=== PATIENT | female | born 1970 | race Caucasian/White ===

== ENCOUNTER 2023-10-30 06:58 | Inpatient (IN) | payer MEDICAID ==
[2023-10-24 14:19] LABS: BASOPHILS % (AUTO) 0.5 % (0-1); EOSINOPHILS # (AUTO) 0.2 X10'3 (0-0.9); EOSINOPHILS % (AUTO) 3.2 % (0-6); LYMPHOCYTES # (AUTO) 1.9 X10'3 (1.1-4.8); LYMPHOCYTES % (AUTO) 29.6 % (21-51); MEAN CORPUSCULAR HEMOGLOBIN 31.3 PG (27.0-31.0); MEAN CORPUSCULAR HGB CONC 33.5 g/dL (33.0-36.5); MEAN CORPUSCULAR VOLUME 93.7 FL (78-98); MEAN PLATELET VOLUME 8.1 FL (7.4-10.4); MONOCYTES # (AUTO) 0.4 X10'3 (0-0.9); NEUTROPHILS # (AUTO) 3.8 X10'3 (1.8-7.7); NEUTROPHILS % (AUTO) 59.7 % (42-75); PRE OP HEMATOCRIT 41.1 % (35.0-45.0); PRE OP HEMOGLOBIN 13.7 g/dL (12.0-16.0); PRE OP PLATELET COUNT 226 X10'3 (140-440); PRE OP WHITE BLOOD COUNT 6.3 10'3 (4.8-10.8); RED BLOOD COUNT 4.38 X10'6 (4.20-5.60); RED CELL DISTRIBUTION WIDTH 13.2 % (11.5-14.5)
[2023-10-24 14:32] LABS: ALBUMIN 3.7 G/DL (3.4-5.0); ALBUMIN/GLOBULIN RATIO 1.1 (1.1-1.5); ALKALINE PHOSPHATASE 138 IU/L (46-116); BLOOD UREA NITROGEN 11 MG/DL (7-18); BUN/CREATININE RATIO 11.8 (10.0-20.0); CHLORIDE 105 MMOL/L (99-107); CREATININE 0.93 MG/DL (0.40-0.90); PRE OP ALT 27 U/L (30-65); PRE OP ANION GAP 9 (8-16); PRE OP AST 12 U/L (10-37); PRE OP BILIRUB, TOTAL 0.3 MG/DL (0.0-1.0); PRE OP GLUCOSE 83 MG/DL (70-104); PRE OP POTASSIUM 3.9 MMOL/L (3.4-5.1); PRE OP SODIUM 142 MMOL/L (135-145); TOTAL PROTEIN 7.1 G/DL (6.4-8.2); eGFR 63 ML/MIN
[2023-10-30] VITALS (25 sets, daily range): BP systolic 115–166; BP diastolic 59–98; PULSE 58–86; RESP 13–17; TEMP 97.6–97.7; O2SAT 92–98
[~2023-10-30] VITALS: Ht 162.6 cm; Wt 81.2 kg
[2023-10-30] MEDS: cefazolin 2gm/D5W 100mL 100 ML IV ONE (05:30)
[~2023-10-30 06:58] MED LIST: ACET-1 PO; PARO10TA4 PO
[2023-10-30] MEDS: ringers solution, lacted 1,000 ML IV SCH ×2 (07:47→10:00)
[2023-10-30] MEDS: famotidine 20mg tablet PO ONE (07:48)
[2023-10-30] MEDS: LIDOcaine 1% 30ml preserv. free vial ONE (09:21)
[2023-10-30] MEDS: BUPIVAcaine/PF 2.5mg/ml (0.25%) 10ml vial ONE ×2 (09:21→11:56)
[2023-10-30] MEDS ORDERED: sevoflurane 250ml liquid IH ONE (09:26)
[2023-10-30] MEDS ORDERED: midazolam 1 mg/ML 2ml injection ONE (09:28)
[2023-10-30] MEDS ORDERED: fentaNYL/PF 50MCG/1 ML 2ML syringe ONE ×2 (09:28→11:03)
[2023-10-30] MEDS ORDERED: LIDOcaine 2% (20mg/ml) 5ml vial ONE (09:28)
[2023-10-30] MEDS ORDERED: propofol inj 20 ML IV ONE (09:28)
[2023-10-30] MEDS ORDERED: ondansetron/PF 4mg/2ml inj ONE (09:29)
[2023-10-30] MEDS ORDERED: glycopyrrolate 0.2mg/ml inj ONE (09:29)
[2023-10-30] MEDS ORDERED: rocuronium 10mg/ml inj IV ONE ×3 (09:29→12:19)
[2023-10-30] MEDS ORDERED: acetaminophen 1,000mg/100ml IV 100 ML IV ONE (09:30)
[2023-10-30] MEDS ORDERED: ondansetron/PF 4mg/2ml inj IV PRN ×2 (10:00→13:20)
[2023-10-30] MEDS ORDERED: labetalol 20mg/4ml (5mg/ml) syringe IV PRN (10:00)
[2023-10-30] MEDS ORDERED: fentaNYL/PF 50MCG/1 ML 2ML syringe IV PRN ×2 (10:00)
[2023-10-30] MEDS ORDERED: hydrALAZINE 20mg/ml inj. IV PRN (10:00)
[2023-10-30] MEDS: BUPIVAcaine 0.5% inj/PF 30 ml vial IJ ONE (10:07)
[2023-10-30] MEDS ORDERED: ePHEDrine 50MG/ML INJ. ONE (10:19)
[2023-10-30] MEDS ORDERED: sugammadex 200mg/2ml injection IV ONE (10:45)
[2023-10-30] MEDS: BUPIVACAINE liposomal/PF 13.3 MG/ML vial IM ONE (11:56)
[2023-10-30] MEDS: morphine 4 MG/ML inj SYRINge IV PRN (13:09)
[2023-10-30] MEDS: normal saline 1000ml 1,000 ML IV SCH (13:20)
[2023-10-30] MEDS ORDERED: naloxone 0.4 mg/ml inj IV PRN (13:20)
[2023-10-30] MEDS: morphine 2 MG/ML inj. syringe IV PRN (13:27)
[2023-10-30] MEDS: HYDROmorph/NS 0.2 mg/ml PCA 100 ML IV SCH (14:09)
[2023-10-30] MEDS: heparin, porcine 5000 units/ml vial SQ SCH (20:09)
[2023-10-30] MEDS: docusate sod 100mg capsule PO SCH (20:09)
[2023-10-30] MEDS: sennosides/docusate sodium tablet PO SCH (20:10)
[2023-10-31] VITALS (7 sets, daily range): BP systolic 122–143; BP diastolic 68–82; PULSE 63–86; RESP 14–16; TEMP 97.7–98.4; O2SAT 19–95
[2023-10-31] MEDS: PARoxetine 10mg tablet PO SCH (10:22)
[2023-10-31] MEDS ORDERED: oxyCODONE/APAP 5-325mg tablet PO PRN (11:55)
[2023-10-31] MEDS: magnesium hydroxide 30ml (MOM) UD suspension PO ONE (12:41)
[2023-10-31] MEDS: PCA WASTE DOCUMENTATION 1 MG ML MC SCH (13:07)
[2023-10-31] MEDS: oxyCODONE/APAP 5-325mg tablet PO PRN ×2 (16:16→19:37)
[2023-11-01 06:00] VITALS: BP 154/93; PULSE 71; RESP 16; TEMP 97.9; O2SAT 94
[2023-11-01 07:06] LABS: ALBUMIN 3.4 G/DL (3.4-5.0); ANION GAP 7 (8-16); BLOOD UREA NITROGEN 9 MG/DL (7-18); BUN/CREATININE RATIO 12.9 (10.0-20.0); CALCIUM 9.1 MG/DL (8.5-10.1); CHLORIDE 102 MMOL/L (99-107); GLUCOSE 92 MG/DL (70-104); POTASSIUM 3.6 MMOL/L (3.5-5.1); SODIUM 140 MMOL/L (135-145); TOTAL CARBON DIOXIDE 31.4 MMOL/L (24-32); eCRCL 79 ML/MIN; eGFR 87 ML/MIN
[2023-11-01 07:13] LABS: BASOPHILS % (AUTO) 0.4 % (0-1); EOSINOPHILS # (AUTO) 0.1 X10'3 (0-0.9); EOSINOPHILS % (AUTO) 2.3 % (0-6); HEMATOCRIT 39.9 % (35.0-45.0); HEMOGLOBIN 13.2 g/dl (12.0-16.0); LYMPHOCYTES # (AUTO) 1.3 X10'3 (1.1-4.8); LYMPHOCYTES % (AUTO) 20.7 % (21-51); MEAN CORPUSCULAR HEMOGLOBIN 31.6 PG (27.0-31.0); MEAN CORPUSCULAR HGB CONC 33.1 g/dL (33.0-36.5); MEAN CORPUSCULAR VOLUME 95.5 FL (78-98); MEAN PLATELET VOLUME 8.6 FL (7.4-10.4); MONOCYTES # (AUTO) 0.5 X10'3 (0-0.9); MONOCYTES % (AUTO) 8.1 % (2-12); NEUTROPHILS # (AUTO) 4.3 X10'3 (1.8-7.7); NEUTROPHILS % (AUTO) 68.5 % (42-75); PLATELET COUNT 236 X10'3 (140-440); RED BLOOD COUNT 4.18 X10'6 (4.20-5.60); RED CELL DISTRIBUTION WIDTH 13.6 % (11.5-14.5); WHITE BLOOD COUNT 6.3 X10'3 (4.5-11.0)
[2023-11-01 08:00] VITALS: RESP 16; O2SAT 93
[2023-11-01 10:00] VITALS: BP 137/87; PULSE 68; RESP 18; TEMP 97.6; O2SAT 93
[2023-11-01] MEDS ORDERED: OXYC1TAB17 PO (13:07)
[2023-11-01 14:04] VITALS: RESP 16
== END 2023-11-01 15:14 | disposition home or self-care (01) | DRG 227 ==
LOC: PAS 06:58 → EDSTATUS 09:00 → SUR 3N 13:21
PROVIDERS: ADMIT Surgery; ATTEND Surgery
PROC: 8E0W4CZ Robotic Assisted Procedure of Trunk Region, Percutaneous Endoscopic Approach (ICD-10-PCS; 2023-10-30)
PROC: 3E0T3BZ Introduction of Anesthetic Agent into Peripheral Nerves and Plexi, Percutaneous Approach (ICD-10-PCS; 2023-10-30)
PROC: 0WUF4JZ Supplement Abdominal Wall with Synthetic Substitute, Percutaneous Endoscopic Approach (ICD-10-PCS; principal; 2023-10-30 09:26)
DX: K43.2 Incisional hernia without obstruction or gangrene (principal)
CPT/HCPCS: 36415; 80048; 80053; 82948; 85025; 93005; A4215; A4615; A4618; C1758; C1781; C9290; G0378; J0131; J0665; J0690; J1170; J1644; J2250; J2270; J2405; J2704; J3010; J3490; J7030; J7120